=== PATIENT | female | born 1960 | race African-American/Black ===

== ENCOUNTER 2016-05-24 20:05 | Emergency (ER) | payer OTHER | END 2016-05-24 21:40 | disposition home or self-care (01) | LOC: FER 20:05 | DX: K08.89 Other specified disorders of teeth and supporting structures (principal) ==

== ENCOUNTER 2016-07-25 12:51 | Emergency (ER) | payer OTHER ==
[2016-07-25 14:42] LABS: BILIRUBIN NEGATIVE (NEGATIVE); BLOOD NEGATIVE Ery/uL (NEGATIVE); CLARITY CLEAR (CLEAR); COLOR YELLOW (YELLOW); GLUCOSE (U) NORMAL (NORMAL); KETONE (U) NEGATIVE (NEGATIVE); LEUKOCYTES NEGATIVE Leu/uL (NEGATIVE); NITRITE NEGATIVE (NEGATIVE); PROTEIN NEGATIVE (NEGATIVE); UROBILINOGEN 0.2 mg/dL (0.2-1.0); pH 6.5 (5.0-9.0)
[2016-07-25 14:43] LABS: BASOPHIL 0.5 % (0-2); EOSINOPHIL 3.5 % (0-5); HCT 36.9 % (37.0-47.0); HGB 12.8 g/dl (12.5-16.0); LYMPHOCYTE 37.7 % (15-48); MCH 29.9 pg (25.0-31.0); MCHC 34.7 g/dL (32.0-36.0); MCV 86.2 fL (78.0-100.0); MONOCYTE 8.1 % (0-12); MPV 9.5 fL (6.0-9.5); NEUTROPHIL 50.2 % (41-80); PLT 235 K/uL (150-400); RBC 4.28 M/uL (4.20-5.40); RDW 13.5 % (11.5-14.0); WBC 5.9 K/uL (4.0-10.5)
[2016-07-25 14:56] LABS: CREATININE 0.7 mg/dL (0.5-1.0); POTASSIUM 3.6 mmol/L (3.5-5.1)
== END 2016-07-25 16:31 | disposition home or self-care (01) ==
LOC: FER 12:51
PROVIDERS: Nurse Practitioner Family
DX: M54.5 Low back pain (principal); R51 Headache; R05 Cough; E11.9 Type 2 diabetes mellitus without complications; I10 Essential (primary) hypertension; G43.909 Migraine, unspecified, not intractable, without status migrainosus; Z98.51 Tubal ligation status
CPT/HCPCS: 36415; 71020; 72110; 80048; 81003; 85025; J1100; J1885

== ENCOUNTER 2020-12-25 18:05 | Emergency (ER) | payer OTHER ==
[~2020-12-25 18:05] MED LIST: AMARYL1 MG PO; AMARYL2 MG PO; CEPHALEXIN500 MG PO; CITALOPRAM 40MG40 MG PO; CLONAZEPAM 1MG T1 MG PO; JANUVIA 100MG100 MG PO; JANUVIA50 MG PO; JARDIANCE25 MG PO; LASIX20 MG PO; LEVOTHYROXINE100 MCG PO; LIPITOR 10MG TA10 MG PO; MEDROL 4MG DOSEP4 MG PO; MELOXICAM15 MG PO; NERVE MED; OMEPRAZOLE40 MG PO; PRINIVIL10 MG PO; VITAMIN D1000 UNI1 PO
[2020-12-25 19:14] LABS: BASOPHIL 0.6 % (0-2); EOSINOPHIL 2.5 % (0-5); HCT 40.7 % (37.0-47.0); HGB 13.5 g/dl (12.5-16.0); LYMPHOCYTE 23.8 % (15-48); MCH 30.3 pg (25.0-31.0); MCHC 33.2 g/dL (32.0-36.0); MCV 91.3 fL (78.0-100.0); MONOCYTE 7.8 % (0-12); NEUTROPHIL 65.1 % (41-80); NRBC 0; PLT 194 K/uL (150-400); RBC 4.46 M/uL (4.20-5.40); RDW 13.2 % (11.5-14.0); WBC 8.4 K/uL (4.0-10.5)
[2020-12-25 19:33] LABS: BUN/CREAT RATIO (CALC) 21.7 RATIO; CREATININE 0.6 mg/dL (0.51-0.95); POTASSIUM 3.7 mmol/L (3.5-5.1)
[2020-12-25 19:35] LABS: BILIRUBIN NEGATIVE (NEGATIVE); BLOOD NEGATIVE Ery/uL (NEGATIVE); CLARITY CLEAR (CLEAR); COLOR YELLOW (YELLOW); GLUCOSE (U) NORMAL (NORMAL); LEUKOCYTES NEGATIVE Leu/uL (NEGATIVE); NITRITE NEGATIVE (NEGATIVE); PROTEIN NEGATIVE (NEGATIVE); SPECIFIC GRAVITY 1.025 (1.001-1.030)
[2020-12-25 19:39] LABS: AMPHETAMINES NEGATIVE (NEGATIVE); BARBITURATES NEGATIVE (NEGATIVE); ECSTASY (MDMA) NEGATIVE (NEGATIVE); MARIJUANA (THC) NEGATIVE (NEGATIVE); METHADONE NEGATIVE (NEGATIVE); OPIATES NEGATIVE (NEGATIVE); OXYCODONE NEGATIVE (NEGATIVE)
[2020-12-25] MEDS ORDERED: NAPROXEN500 MG PO (20:49)
== END 2020-12-25 21:50 | disposition home or self-care (01) ==
LOC: FER 18:05
PROVIDERS: Nurse Practitioner Family
DX: S86.912A Strain of unspecified muscle(s) and tendon(s) at lower leg level, left leg, initial encounter (principal); M17.12 Unilateral primary osteoarthritis, left knee; G43.909 Migraine, unspecified, not intractable, without status migrainosus; E11.9 Type 2 diabetes mellitus without complications; I10 Essential (primary) hypertension; Z88.8 Allergy status to other drugs, medicaments and biological substances; X58.XXXA Exposure to other specified factors, initial encounter
CPT/HCPCS: 36415; 73564; 80048; 80305; 81003; 85025; 85379; 93971; J1100; J1885